=== PATIENT | male | born 1995 | race Caucasian/White ===

== ENCOUNTER 2019-04-16 12:30 | Emergency (ER) | payer OTHER ==
[2019-04-16] MEDS: CYCLOBENZAPRINE 10 MG TAB PO (13:56)
[2019-04-16] MEDS: HYDROCODONE/APAP (5/325) TAB PO (13:56)
[2019-04-16] MEDS: KETOROLAC 60 MG INJ IM (13:58)
[2019-04-16] MEDS: METHYLPREDNISOLONE 125 MG INJ IM (13:58)
== END 2019-04-16 15:06 | disposition home or self-care (01) ==
LOC: FTE 12:30
DX: M54.42 Lumbago with sciatica, left side (principal)
CPT/HCPCS: 96372; 99284-25